=== PATIENT | male | born 1930 | race Caucasian/White ===

== ENCOUNTER 2016-07-11 14:53 | Inpatient (IN) | payer MEDICARE, BC ==
--- NOTE | ~2016-07-11 | EKG ---
PATIENT: Kendrick CHAVARRIA UNIT #: [id number] Ventricular Rate: 91 BPM Atrial Rate: 91 BPM P-R Interval: 210 ms QRS Duration: 86 ms Q-T Interval: 350 ms QTC Calculation(Bezet): 430 ms P Blackwell: -4 degrees Calculated R Blackwell: -20 degrees Calculated T Blackwell: 123 degrees Diagnosis Line: Sinus rhythm with 1st degree A-V block Diagnosis Line: Cannot rule out Septal infarct , age undetermined Diagnosis Line: Inferior infarct , age undetermined Diagnosis Line: ST and T wave abnormality, consider lateral ischemia Diagnosis Line: Abnormal ECG Diagnosis Line: No previous ECGs available Diagnosis Line: Confirmed by KIM VENTUAR MD ([id number]) on 07/12/2016 Diagnosis Line: 10:02:30 AM INTERPRETING MD: AUDREY CONTRERAS
--- NOTE | ~2016-07-11 | HP ---
Unit #: [id number] #: [id number] Patient: Kendrick CHAVARRIA [id number] [facility] [address] [facility]. [place], [place] [address] [id number] I MR#: [id number] NAME: Kendrick CHAVARRIA. ROOM: 314 Age: 86 Sex: M Admission Date: 07/11/2016 : 1930 Attending Physician: Елена Joiner M.D. Primary Care Physician: Anu Bingham M.D. HISTORY AND PHYSICAL CHIEF COMPLAINT Altered mental status. HISTORY OF PRESENT ILLNESS The patient is an 86-year-old male with the past medical history of hypertension, hyperlipidemia, reflux, coronary artery disease, who presented to the emergency department for evaluation of the above. The patient was apparently found down by a neighbor on the ground in the heat. The patient had reportedly been doing yard work. The patient's is now at bedside. She last saw him normal this morning around 8 a.m. She then went to [place] to visit a friend. The patient was in his usual state of health this morning. Upon arrival in the emergency department, the patient's initial temperature was 105.1, pulse 107, oxygen saturation was 94% on room air, blood pressure 141/81. He was given 1 liter of normal saline as well as 975 mg of Tylenol per rectum. Additionally, ice packs were applied to his axillary areas. Most recent temperature is 99.6. Initially, he was lethargic and oriented to place only. At the time of my evaluation, he is oriented times 3. He states that he went out to do yard work around 10. He was triaged here at 14:53. He is being admitted to [facility] for evaluation and further treatment. PAST MEDICAL HISTORY 1. No hospitalizations for more than 10 years per the patient's . 2. Coronary artery disease, status post coronary artery bypass grafting followed by Dr. Hankins. 3. Hypertension. 4. Hyperlipidemia. 5. GERD. PAST SURGICAL HISTORY 1. EGD and colonoscopy. 2. Hernia repair. 3. Sinus surgery. 4. Coronary artery bypass grafting. ALLERGIES No known allergies. HOME MEDICATIONS 1. Toprol. 2. Claritin. Unit #: [id number] #: [id number] Patient: Kendrick CHAVARRIA 3. Zocor. 4. Aspirin. 5. Amlodipine. 6. Benazepril. 7. Fish oil. 8. Meloxicam. 9. Lopressor. 10. Multivitamin. 11. Omeprazole. 12. Ditropan. 13. Simvastatin. Home medications will need to be reviewed and verified. SOCIAL HISTORY The patient lives with his . There is no tobacco or alcohol use. He typically walks without assistance. FAMILY HISTORY Notable for both parents having hypertension. He has a brother that at the age of 96. REVIEW OF SYSTEMS A complete review of systems is limited from the patient but negative except as indicated in the HPI per the family. PHYSICAL EXAMINATION VITAL SIGNS: Temperature initially was 105.1, most recently 99.6, pulse 107, respirations 16, blood pressure 141/81, oxygen saturation 94%. Most recent blood pressure 107/57. GENERAL: The patient is a male who is sleeping but is now waking to physical stimuli. HEENT: Head is atraumatic. Mucous membranes are dry. NECK: Supple. Trachea is midline. LUNGS: Clear to auscultation bilaterally with no increased work of breathing. HEART: Regular rate and rhythm. ABDOMEN: Soft, nontender. Bowel sounds present in all four quadrants. EXTREMITIES: Nontender with no pedal edema. NEUROLOGIC: Patient is sleeping but wakes to physical stimuli. He is oriented to person, place, and year. He follows commands. He is moving all extremities. PSYCHIATRIC: Patient is cooperative. SKIN OF EXAMINED AREAS: Warm and dry. DIAGNOSTIC STUDIES LABORATORY: Complete blood count notable for platelets of 133. Troponin is less than 0.05. INR is 1.1. Comprehensive metabolic panel notable for a sodium of 133, glucose 139, CK is 249. Alcohol level less than 5. Lactic acid 1.3. IMAGING: CT of the head showed nothing acute. Chest x-ray showed nothing acute. Cervical spine showed nothing acute. CARDIOVASCULAR: EKG showed sinus rhythm with first-degree AV block and a Unit #: [id number] #: [id number] Patient: Kendrick CHAVARRIA rate of 91 beats per minute. ASSESSMENT The patient is an 86-year-old male with: 1. Heat stroke. Temperature was initially 105.1, he received Tylenol as well as 1 liter of normal saline and ice packs. Most recent temperature is 99.6. 2. Hypertension. Most recent blood pressure was 107/57. 3. Hyperlipidemia. 4. Gastroesophageal reflux disease. 5. Coronary artery disease, status post coronary artery bypass grafting. 6. Thrombocytopenia. The patient's platelets are 133 today, platelets were 183 on 01/02/2013. PLAN 1. Admit for observation to intermediate level. 2. Healthy-heart diet if passes bedside swallow. 3. Normal saline at 75 mL per hour. 4. Neuro checks. 5. Serial cardiac enzymes. 6. Bedrest. 7. Fall precautions. 8. Will hold antihypertensive medications for now. 9. Will also hold statin due to elevated CPK. 10. Supplemental oxygen. 11. Repeat labs in the morning including CPK. 12. SCDs for DVT prophylaxis. 13. Additional workup and consultants based on above. Dictated by Guillaume Brown/keiry TD: 07/11/2016 20:05 JOB #: [id number] HISTORY AND PHYSICAL Page 1 of 1 X Елена Joiner MD X HISTORY AND PHYSICAL
--- NOTE | ~2016-07-11 | CT71 ---
[facility] A Service [facility] RADIOLOGY TEXT RESULTS PATIENT: Kendrick CHAVARRIA LOCATION: [facility] 314-01 : 30 UNIT #: [id number] AGE: [address]: Елена Joiner MD SEX: M ORDER DR: [id number] [facility]. [place], [place] [address] [id number] E MR#: [id number] Acc #: [id number] NAME: Kendrick CHAVARRIA. : 1930 SEX: M STUDY DATE/TIME: 07/11/2016 16:21 UNIT: [facility] ROOM: STUDY DESCRIPTION: CT Head Wo Contrast Attending Physician: Nicolas Brown M.D. Ordering Physician: Nicolas Brown M.D. Primary Care Physician: Anu Bingham M.D. MEDICAL IMAGING REPORT This report is preliminary unless electronic signature is present EXAM CT scan of the head without contrast. HISTORY Found down in yard today. Confusion. COMPARISON None TECHNIQUE Unenhanced images were obtained through the brain. This CT exam was performed with one or more of the following radiation dose reduction techniques: automatic exposure control, adjustment of mA and/or kV according to patient size, and iterative reconstruction. FINDINGS There is mild atrophy and small vessel ischemic changes. There are no masses or extraaxial fluid collections or hemorrhage. IMPRESSION Mild atrophy. No acute abnormality. Dictated by... Nitin Betancur M.D. THIS IS AN ELECTRONICALLY VERIFIED REPORT Nitin Betancur M.D. at 07/12/2016 7:14 AM TIMOTHY/chato TD: 07/11/2016 19:38 [facility] A Service [facility] RADIOLOGY TEXT RESULTS PATIENT: Kendrick CHAVARRIA [facility] 314-01 : 30 UNIT #: [id number] AGE: [address]: Елена Joiner MD SEX: M ORDER DR: JOB #: [id number] MEDICAL IMAGING REPORT Page 1 of 1 COPY
--- NOTE | ~2016-07-11 | CO ---
Unit #: [id number] #: [id number] Patient: Kendrick CHAVARRIA [id number] [address] [place], [place] [address] [id number] I MR#: [id number] NAME: Kendrick CHAVARRIA. ROOM: 314 Age: 86 Sex: M Admission Date: 07/11/2016 : 1930 Attending Physician: Lise Ravi M.D. Primary Care Physician: Anu Bingham M.D. Consultation Date: 07/13/2016 CONSULTATION REPORT REASON FOR CONSULT Syncope. HISTORY OF PRESENT ILLNESS This is an 86-year-old white male, previously known to cardiology, with a past medical history of coronary artery disease, status post coronary artery bypass grafting x5 on November 02, 1998. The patient has a history of hypertension, hyperlipidemia, and GERD. Reportedly had a cardiac catheterization four to five years ago with no intervention completed. The stress test was completed most recently in the last two to three years which was reported as normal. Records have been requested but are unavailable. The patient is a nonsmoker. He presented to the emergency department with altered mental status. Apparently he was found down by a neighbor on the ground. He had been working in his yard all day while his went to the hospital to visit a friend. When he was found on the ground, he was confused but responsive. EMS was dispatched. On arrival, his temperature was reportedly 105. He was given icepacks and started on IV fluids. He was given a dose of Tylenol and his temperature improved. His altered mental status resolved and he is currently alert. He states that he does not recall falling. He does not recall any precipitating events to being on the ground. His states that he does work in the yard frequently and has to be told to come in. She believes that he stays out for too long and should not be as active. He denies any chest pain during interview. He denies PND, orthopnea or lower extremity edema. There is no shortness of breath on exertion. He has not had prior episodes of syncope. He follows with Dr. Byrne at [facility] and has not missed any of his medications or followup visits. PAST MEDICAL HISTORY 1. Coronary artery disease, status post coronary artery bypass grafting x5 with JOHNSON to the LAD, saphenous vein graft to the first diagonal, saphenous vein graft to the second diagonal, saphenous vein graft to the obtuse marginal, and saphenous vein graft to the right coronary artery at [facility] on 11/02/98. 2. Reported cardiac catheterization four to five years ago with no intervention. Records unavailable. 3. Reported stress test two to three years ago. Report is normal. Records not available. 4. Hypertension. 5. Hyperlipidemia. 6. GERD. 7. Status post EGD and colonoscopy in 01/2013 with mild gastritis, Unit #: [id number] #: [id number] Patient: Kendrick CHAVARRIA duodenitis and erosive esophagitis. 8. Nonsmoker. PAST SURGICAL HISTORY 1. Coronary artery bypass grafting. 2. Cardiac catheterization. 3. Hernia repair. 4. EGD and colonoscopy. 5. Sinus surgery. HOME MEDICATIONS List of home medications include: 1. Toprol. 2. Claritin. 3. Zocor. 4. Aspirin. 5. Amlodipine. 6. Benazepril. 7. Fish oil. 8. Meloxicam. 9. Multivitamin. 10. Omeprazole. 11. Ditropan. 12. Simvastatin. ALLERGIES No known drug allergies. SOCIAL HISTORY The patient lives in a private residence with his . He is a nonsmoker. No reports of alcohol or illicit drug use. FAMILY HISTORY Significant for hypertension. His brother at an old age at 96. REVIEW OF SYSTEMS Ten point review of systems is negative except for details noted above in HPI. PHYSICAL EXAMINATION CONSTITUTIONAL: This is an 86-year-old white male in no acute distress. SKIN: Warm and dry. NECK: Supple. No jugular vein distention. No hepatojugular reflux. Normal carotid upstrokes. No carotid bruits auscultated. HEART: S1 and S2. Regular rate and rhythm. No murmurs, rubs or gallops. LUNGS: Bilateral breath sounds have good air entry throughout all lung davila. Respirations even and unlabored. No rales, rhonchi or wheezes. ABDOMEN: Soft, nontender, and nondistended. Positive bowel sounds auscultated x4 quadrants. No ascites noted. EXTREMITIES: Bilateral extremities have no pretibial pitting edema. DP and PT pulses 2+. Capillary refill less than three seconds. DIAGNOSTIC STUDIES LABORATORY: White blood cell count 7.3, hemoglobin 12.8, hematocrit 37.2, platelets 122, sodium 136, potassium 3.5, chloride 105, CO2 23, BUN 8, creatinine 0.7, glucose 95, magnesium 2.0, AST 130, ALT 140, alkaline phos. 42. CK total 6168. Troponin 0.05 and 0.07. Lactic acid 1.1, TSH 1.49, INR 1.1. Unit #: [id number] #: [id number] Patient: Kendrick CHAVARRIA Urine toxicology negative. Urinalysis negative. IMAGING: Chest x-ray reveals no acute findings. CT of the head reveals no acute findings. 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 Degenerative changes. Otherwise, normal. CARDIOVASCULAR: Electrocardiogram reveals sinus rhythm with a first degree AV block. T wave abnormality in the lateral leads. QTC 430 msec. IMPRESSION 1. Syncope. 2. Rhabdo. 3. Heat stroke. 4. Frequent PVCs. 5. Coronary artery disease with history of coronary artery bypass grafting x5 in 1998. Reported cardiac catheterization and stress test after bypass with no intervention. Records unavailable but pending. 6. Hypertension. 7. Hyperlipidemia. 8. GERD. 9. Mild thrombocytopenia. 10. Nonsmoker. 11. 2D echocardiogram July 2016, revealed an ejection fraction of 50% to 55% with grade 1 diastolic dysfunction and mild to moderate aortic regurgitation. PLAN 1. The patient presented to the hospital after being found down with an elevated temperature of 105. He was started on IV fluids and Tylenol and his symptoms improved. 2. Cardiology was consulted due to frequent PVCs. The patient has been off his antihypertensives due to syncope. I will restart low dose beat blockers with parameters. 3. TSH level is normal. Potassium and magnesium are stable. 4. Orthostatic vital signs are negative today. 5. Records have been requested from Dr. Byrne's office for review. 6. The patient's amlodipine and benazepril will be held due to recent heat stroke and borderline blood pressure readings. 7. 2D echocardiogram has been obtained and reveals an ejection fraction of 50% to 55%. 8. No further cardiac workup is needed. Dictated by... Mayra Palmer APRN for Guillaume Duvall TD: 07/20/2016 07:20 Unit #: [id number] #: [id number] Patient: Kendrick CHAVARRIA JOB #: [id number] CONSULTATION REPORT Page 1 of 1 X X CONSULTATION REPORT
--- NOTE | ~2016-07-11 | CT52 ---
[facility] A Service of [facility] RADIOLOGY TEXT RESULTS PATIENT: Kendrick CHAVARRIA LOCATION: [facility] 314-01 : 30 UNIT #: [id number] AGE: [address]: Елена Joiner MD SEX: M ORDER DR: [id number] [facility] [address] [facility]. [place], [place] [address] [id number] E MR#: [id number] Acc #: [id number] NAME: Kendrick CHAVARRIA. : 1930 SEX: M STUDY DATE/TIME: 07/11/2016 16:26 UNIT: [facility] ROOM: STUDY DESCRIPTION: CT Cervical Spine Wo Cont Attending Physician: Nicolas Brown M.D. Ordering Physician: Nicolas Brown M.D. Primary Care Physician: Anu Bingham M.D. MEDICAL IMAGING REPORT This report is preliminary unless electronic signature is present EXAM CT scan of the cervical spine without contrast. HISTORY Acute mental status changes. Found down in yard in heat today with confusion and neck pain. TECHNIQUE Axial 2-mm images were obtained through the cervical spine and sagittal and coronal reconstructions were generated. This CT exam was performed with one or more of the following radiation dose reduction techniques: automatic exposure control, adjustment of mA and/or kV according to patient size, and iterative reconstruction. 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 There is posterior osteophyte formation at C3-C4, C4-C5, and C6-C7. There is no fracture or subluxation identified. The facets are also fused at C4-C5. IMPRESSION 1. 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 2. Degenerative change. 3. Otherwise, normal. Dictated by... Nitin Betancur M.D. THIS IS AN ELECTRONICALLY VERIFIED REPORT Nitin Betancur M.D. at 07/12/2016 7:14 AM TIMOTHY/chato [facility] A Service of [facility] RADIOLOGY TEXT RESULTS PATIENT: Kendrick CHAVARRIA LOCATION: [facility] 314-01 : 30 UNIT #: [id number] AGE: [address]: Елена Joiner MD SEX: M ORDER DR: TD: 07/11/2016 19:42 JOB #: [id number] MEDICAL IMAGING REPORT Page 1 of 1 COPY
--- NOTE | ~2016-07-11 | DS ---
Unit #: [id number] #: [id number] Patient: Kendrick CHAVARRIA [id number] [facility]. [place], [place] [address] [id number] MR#: [id number] NAME: Kendrick CHAVARRIA. ROOM: 314 Age: 86 Sex: M Admission Date: 07/11/2016 : 1930 Discharge Date: 07/14/2016 Attending Physician: Lise Ravi M.D. Primary Care Physician: Anu Bingham M.D. DISCHARGE SUMMARY REASON FOR ADMISSION Altered mental status. HISTORY OF PRESENT ILLNESS/HOSPITAL COURSE The patient is a very pleasant 86-year-old male with underlying history of hypertension, hyperlipidemia, coronary artery disease followed by daryl Quinn, who was admitted secondary to altered mental status. Apparently he was found down by a neighbor on the ground in his front yard. He had reportedly been doing yard work for several hours and apparently had a syncopal episode. EMS services were called by neighbor. The patient was brought to the hospital for further evaluation. Initial temperature was noted to be 105.1, pulse 107, O2 saturation 94%. He was given Tylenol, initially admitted secondary to heat exhaustion/heat stroke. Through initial laboratory studies, initial CK level was noted to be elevated at 5441 secondary to acute rhabdomyolysis. He was placed on telemetry floor and IV fluids were initiated. CK level did peak at 6168. Electrolytes including creatinine and other routine studies were negative. CT head was performed without contrast on 07/11/2016. This did not show any acute process. Mild atrophy was noted. Patient also underwent CT cervical spine without contrast on this particular hospital admission. There were postoperative changes of fusion at C4 and C6. Degenerative changes were noted but no other acute process. Through hospital course, blood cultures have not yielded any bacterial growth. Secondary to acute hypotension as well as profound weakness, blood pressure medications initially were placed on hold. The patient did develop some rhythm changes including frequent PVCs and, therefore, consultation was placed to Dr. Hankins and associates for further evaluation. Dr. Kapoor saw and evaluated the patient and did not recommend any further cardiac workup but did recommend to resume beta blockers at time of discharge. The patient did undergo 2D echocardiogram showing ejection fraction of 50% to 55% with associated grade 1 diastolic dysfunction. Mild to moderate aortic regurgitation was noted but no other acute process. Unit #: [id number] #: [id number] Patient: Kendrick CHAVARRIA At this point in time, today patient's CK level currently stands at 4427. He is otherwise feeling well, currently is ambulatory. He has tolerated diet well without any difficulties. His creatinine level is normal. I have advised him that he may be discharged home. However, he should increase his fluid intake and for the next seven days should remain indoors and try to avoid sweating. He will follow up with his PCP within seven days for a repeat BMP and CK level. Plans have been reviewed with him as well as his present at bedside. At time of discharge, his medications will be adjusted. Please see below. His blood pressure has remained fairly stable with systolic ranging from the 120s to low 140s. FINAL DISCHARGE DIAGNOSES 1. Acute rhabdomyolysis. 2. Heat exhaustion. 3. Syncopal episode. 4. Mental status change, likely secondary to acute heat exhaustion. 5. Coronary artery disease history. 6. Premature ventricular contractions. 7. Hyperlipidemia. FINAL DISCHARGE MEDICATIONS 1. Toprol XL 25 mg p.o. b.i.d. 2. Ditropan XL one tablet p.o. daily. 3. Multivitamin daily. 4. Aspirin 81 mg p.o. daily. 5. Omeprazole 20 mg p.o. daily. DISCHARGE CONDITION Stable. DISCHARGE DISPOSITION Home. After patient follows up with his primary care physician and the CK level is normal, patient may resume simvastatin and/or other medications at the discretion of his primary care physician. Dictated by... Guillaume Nava/mike TD: 07/14/2016 10:37 JOB #: [id number] Unit #: [id number] #: [id number] Patient: Kendrick CHAVARRIA DISCHARGE SUMMARY Page 1 of 1 X Lise Ravi MD X DISCHARGE SUMMARY
--- NOTE | ~2016-07-11 | CR72 ---
[facility] A Service of [facility] & [facility] RADIOLOGY TEXT RESULTS PATIENT: Kendrick CHAVARRIA LOCATION: [facility] 314-01 : 30 UNIT #: [id number] AGE: [address]: Елена Joiner MD SEX: M ORDER DR: [id number] [facility] [address] [facility]. [place], [place] [address] [id number] E MR#: [id number] Acc #: [id number] NAME: Kendrick CHAVARRIA. : 1930 SEX: M STUDY DATE/TIME: 07/11/2016 15:54 UNIT: [facility] ROOM: STUDY DESCRIPTION: CR Chest Single View Portable Attending Physician: Nicolas Brown M.D. Ordering Physician: Nicolas Brwon M.D. Primary Care Physician: Anu Bingham M.D. MEDICAL IMAGING REPORT This report is preliminary unless electronic signature is present EXAM Portable chest, 07/11/2016. HISTORY Acute mental status changes, shortness of air. Patient found down. Symptoms started today. COMPARISON None FINDINGS Portable view of the chest was obtained. The heart size and vascularity are normal, and the lungs are clear. Sternotomy wires are present. IMPRESSION No active disease. Dictated by... Nitin Betancur M.D. THIS IS AN ELECTRONICALLY VERIFIED REPORT Nitin Betancur M.D. at 07/12/2016 7:13 AM TIMOTHY/chato TD: 07/11/2016 18:26 JOB #: [id number] MEDICAL IMAGING REPORT Page 1 of 1 COPY
[~2016-07-11 14:53] MED LIST: AMLODIPINE-BENA1 CA2 PO; ASPIRIN EC81 M1; CLARITIN10 M2; FISH OIL 1,0001 EAC1 PO; TOPROL XL PO; ZOCOR20 MG PO
[2016-07-11] MEDS ORDERED: AMLODIPINE-BEN1 EAC2 PO (15:57)
[2016-07-11] MEDS ORDERED: ASPIRINEC PO (15:58)
[2016-07-11] MEDS ORDERED: FISH OIL 1,001000 M2 PO (15:58)
[2016-07-11] MEDS ORDERED: ALLERGY10 M1 (15:59)
[2016-07-11] MEDS ORDERED: MOBIC15 MG PO (16:00)
[2016-07-11] MEDS ORDERED: MULTIVITAMINS1 EAC3 PO (16:01)
[2016-07-11] MEDS ORDERED: LOPRESSOR PO (16:01)
[2016-07-11] MEDS ORDERED: OMEPRAZOLE20 M2 PO (16:02)
[2016-07-11] MEDS ORDERED: DITROPAN XL10 MG PO (16:03)
[2016-07-11] MEDS ORDERED: SIMVASTATIN20 MG PO (16:04)
[2016-07-11 16:07] LABS: BASOPHIL% 0.3 % (0-2.5); EOSINOPHIL% 0.3 % (0.0-7.0); HEMATOCRIT 38.6 % (38.0-50.0); LYMPHOCYTE# 0.5 X10e3 (1.0-3.5); LYMPHOCYTE% 5.9 % (17.0-45.0); MEAN CELL VOLUME 91.3 FL (83-96); MEAN CORPUSCULAR HEMOGLOBIN 30.8 PG (28-34); MEAN CORPUSCULAR HGB CONC 33.7 g/dL (30-36); MEAN PLATELET VOLUME 8.2 FL (6.5-11.5); MONOCYTE# 0.3 X10e3 (0-1.0); NEUTROPHIL# 7.4 X10e3 (1.5-7.1); NEUTROPHIL% 89.5 % (40-75); PLATELET COUNT 133 X10e3 (140-420); RED BLOOD COUNT 4.22 X10e (3.90-5.60); RED CELL DISTRIBUTION WIDTH 14.7 % (11.0-15.5); WHITE BLOOD COUNT 8.2 X10e3 (4.0-10.5)
[2016-07-11 16:10] LABS: DIFF IND NO
[2016-07-11 16:11] LABS: POC - CKMB 1.3 ng/mL (0.0-7.9); POC - TROPONIN <0.05 ng/mL (<=0.05)
[2016-07-11 16:21] LABS: INR 1.1; PARTIAL THROMBOPLASTIN TIME 25.7 SECONDS (23.5-31.3); PROTHROMBIN TIME (PATIENT) 11.3 SECONDS (9.6-11.5)
[2016-07-11 16:38] LABS: ALKALINE PHOSPHATASE 53 U/L (32-92); ALT (SGPT) 28 U/L (10-40); AST (SGOT) 33 U/L (10-42); BILIRUBIN, DIRECT 0.2 mg/dL (0.0-0.2); BILIRUBIN,INDIRECT 0.9 mg/dL (0.0-0.9); BILIRUBIN,TOTAL 1.1 mg/dL (0.2-2.0); BLOOD UREA NITROGEN 19 mg/dL (9-23); CALCIUM SERUM 9.1 mg/dL (8.4-10.2); CARBON DIOXIDE 22 mmol/L (22-31); CHLORIDE 101 mmol/L (100-111); CPK (CREATINE PHOSPHOKINASE) 249 IU/L (36-174); GLOM FILT RATE Estimated 67.9 mL/min (>60); GLUCOSE FASTING 139 mg/dL (70-110); POTASSIUM 3.6 mmol/L (3.5-5.1); PROTEIN TOTAL SERUM 6.7 g/dL (6.0-8.3); SODIUM 133 mmol/L (135-145)
[2016-07-11 16:39] LABS: ALCOHOL BLOOD <5 mg/dL (0)
[2016-07-11 17:56] LABS: POC - CKMB 1.5 ng/mL (0.0-7.9); POC - TROPONIN <0.05 ng/mL (<=0.05)
[2016-07-11 18:12] LABS: URINE SOURCE CLEAN CATCH
[2016-07-11 18:19] LABS: URINE APPEARANCE CLEAR; URINE BILIRUBIN NEG (NEG); URINE BLOOD NEG (NEG); URINE COLOR YELLOW; URINE GLUCOSE NEG (NEG); URINE KETONE NEG (NEG); URINE LEUKOCYTE ESTERASE NEG (NEG); URINE NITRATE NEG (NEG); URINE PROTEIN NEG (NEG); URINE SPECIFIC GRAVITY 1.016 (1.003-1.035); URINE UROBILINOGEN 0.2 MG/DL (NEG)
[2016-07-11 18:23] LABS: CULTURE INDICATED? NO
[2016-07-11 18:28] LABS: AMPHETAMINE NEG (NEG); BARBITURATES NEG (NEG); BENZODIAZEPINES NEG (NEG); COCAINE NEG (NEG); MARIJUANA NEG (NEG); OPIATES NEG (NEG); TRICYCLIC ANTIDEPRESSANTS NEG (NEG); U METHADONE NEG (NEG)
[2016-07-12 01:44] LABS: %MB 0.4 % (0.0-4.0); MB 19.3 ng/ml
[2016-07-12 05:58] LABS: HEMATOCRIT 35.4 % (38.0-50.0); HEMOGLOBIN 12.1 gm/dL (13.0-16.0); MEAN CELL VOLUME 90.3 FL (83-96); MEAN CORPUSCULAR HGB CONC 34.3 g/dL (30-36); MEAN PLATELET VOLUME 7.7 FL (6.5-11.5); RED BLOOD COUNT 3.91 X10e (3.90-5.60); RED CELL DISTRIBUTION WIDTH 14.6 % (11.0-15.5)
[2016-07-12 06:24] LABS: INR 1.1; PROTHROMBIN TIME (PATIENT) 11.8 SECONDS (9.6-11.5)
[2016-07-12 07:02] LABS: ALBUMIN SERUM 3.1 g/dL (3.5-5.0); BILIRUBIN,TOTAL 1.1 mg/dL (0.2-2.0); BUN/CREATININE RATIO 16.66; CALCIUM SERUM 8.4 mg/dL (8.4-10.2); CREATININE SERUM 0.9 mg/dL (0.6-1.4); GLOM FILT RATE Estimated 77.1 mL/min (>60); POTASSIUM 3.7 mmol/L (3.5-5.1); PROTEIN TOTAL SERUM 5.3 g/dL (6.0-8.3)
[2016-07-12 07:31] LABS: %MB 0.4 % (0.0-4.0); MB 23.7 ng/ml
[2016-07-13 07:32] LABS: BUN/CREATININE RATIO 11.11; CALCIUM SERUM 8.5 mg/dL (8.4-10.2); CREATININE SERUM 0.9 mg/dL (0.6-1.4); GLOM FILT RATE Estimated 77.1 mL/min (>60); POTASSIUM 3.6 mmol/L (3.5-5.1)
[2016-07-14 05:41] LABS: HEMATOCRIT 37.2 % (38.0-50.0); HEMOGLOBIN 12.8 gm/dL (13.0-16.0); MEAN CELL VOLUME 90.5 FL (83-96); MEAN CORPUSCULAR HEMOGLOBIN 31.1 PG (28-34); MEAN CORPUSCULAR HGB CONC 34.4 g/dL (30-36); RED BLOOD COUNT 4.11 X10e (3.90-5.60); RED CELL DISTRIBUTION WIDTH 14.6 % (11.0-15.5); WHITE BLOOD COUNT 7.3 X10e3 (4.0-10.5)
[2016-07-14 06:26] LABS: BUN/CREATININE RATIO 11.42; CALCIUM SERUM 8.5 mg/dL (8.4-10.2); CREATININE SERUM 0.7 mg/dL (0.6-1.4); GLOM FILT RATE Estimated 85.5 mL/min (>60); POTASSIUM 3.5 mmol/L (3.5-5.1)
[2016-07-14] MEDS ORDERED: ASPIRIN EC81 M1 PO (11:26)
[2016-07-14] MEDS ORDERED: OMEPRAZOLE20 M1 PO (11:29)
[2016-07-14] MEDS ORDERED: METOPROLOL TAR25 MG PO (11:31)
== END 2016-07-14 14:09 | disposition home or self-care (01) | DRG 923 ==
LOC: CED 14:53 → C3A PCU 18:40 → CED 18:40 → C3A PCU 18:40 → CED 18:45 → C3A PCU 18:45
PROVIDERS: Emergency Medicine; Family Medicine
PROC: B24BYZZ Ultrasonography of Heart with Aorta using Other Contrast (ICD-10-PCS; principal; 2016-07-12)
DX: T67.0XXA Heatstroke and sunstroke, initial encounter (principal); M62.82 Rhabdomyolysis; I95.9 Hypotension, unspecified; D69.6 Thrombocytopenia, unspecified; Z95.1 Presence of aortocoronary bypass graft; R41.82 Altered mental status, unspecified; I10 Essential (primary) hypertension; E78.5 Hyperlipidemia, unspecified; K21.9 Gastro-esophageal reflux disease without esophagitis; Z79.82 Long term (current) use of aspirin; I25.119 Atherosclerotic heart disease of native coronary artery with unspecified angina pectoris
CPT/HCPCS: 51701; 70450; 71010; 72125; 80048; 80053; 80076; 80307; 81003; 82550; 82553; 82947; 83605; 83735; 84443; 84484; 85025; 85027; 85610; 85730; 87040; 93005; 93306; 94760; 99291; G0480